=== PATIENT | female | born 1985 | race Two or more races ===

== ENCOUNTER 2016-11-16 11:40 | Emergency (ER) | payer MEDICAID ==
[~2016-11-16] VITALS: Ht 162.6 cm; Wt 74.0 kg
[2016-11-16] MEDS ORDERED: ALBUTEROL (0.083%) 2.5MG/3ML NEB HHN STA (13:26)
[2016-11-16] MEDS ORDERED: PREDNISONE 20MG TABLET PO STA (13:26)
[2016-11-16] MEDS ORDERED: IPRATROPIUM BROMIDE (0.02%) 0.5MG/2.5ML NEB HHN STA (13:26)
[2016-11-16 14:42] VITALS: BP 119/70
== END 2016-11-16 14:48 | disposition home or self-care (01) ==
LOC: ER 13:27
DX: J45.901 Unspecified asthma with (acute) exacerbation (principal); F12.10 Cannabis abuse, uncomplicated
CPT/HCPCS: 94640; 99283; J7512; J7611

== ENCOUNTER 2018-04-20 17:13 | Emergency (ER) | payer SELFPAY ==
[~2018-04-20] VITALS: Ht 162.6 cm; Wt 72.7 kg
[2018-04-20] MEDS ORDERED: IPRATROPIUM BROMIDE (0.02%) 0.5MG/2.5ML NEB HHN STA (18:55)
[2018-04-20] MEDS ORDERED: PREDNISONE 20MG TABLET PO STA (18:55)
[2018-04-20] MEDS ORDERED: ALBUTEROL (0.083%) 2.5MG/3ML NEB HHN STA (18:55)
[2018-04-20] MEDS ORDERED: ALBUTEROL (0.5%) 2.5MG/0.5ML NEB HHN ONE (19:42)
[2018-04-20 23:18] VITALS: BP 113/65
== END 2018-04-20 23:20 | disposition home or self-care (01) ==
LOC: ER 21:58
DX: J45.901 Unspecified asthma with (acute) exacerbation (principal); F12.10 Cannabis abuse, uncomplicated
CPT/HCPCS: 71045; 94640; 99283; J7512; J7611